=== PATIENT | female | born 1960 | race Caucasian/White ===

== ENCOUNTER → 2017-04-21 | Outpatient (CLI) | payer OTHER ==
[2017-04-21 18:49] LABS: Basophils # (A) 0.1 k/uL (0-0.2); Basophils % (A) 1 %; CHCM 32.8; Eosinophils # (A) 0.3 k/uL (0-0.7); Eosinophils % (A) 4 %; HCT 45.2 % (34.0-46.0); HDW 2.42; HGB 14.8 gm/dL (11.4-16.0); Luc # (Auto) 0.23; Luc % (Auto) 3; Lymphocytes # (A) 2.6 k/uL (1.0-4.8); Lymphocytes % (A) 36 %; MCH 31.2 pg (25.0-35.0); MCHC 32.8 g/dL (31.0-37.0); MCV 95.1 fL (80.0-100.0); Mean Platelet Volume 8.3; Monocytes # (A) 0.4 k/uL (0-1.0); Monocytes % (A) 6 %; Neutrophils # (A) 3.8 k/uL (1.3-7.7); Neutrophils % (A) 51 %; RBC 4.75 m/uL (3.80-5.40); RDW 12.5 % (11.5-15.5); WBC 7.4 k/uL (3.8-10.6); WBC (Perox) 7.68
[2017-04-21 19:05] LABS: ALT 39 U/L (9-52); AST 22 U/L (14-36); Alkaline Phosphatase 81 U/L (38-126); Anion Gap 13 mmol/L; Blood Urea Nitrogen 19 mg/dL (7-17); Calcium 10.1 mg/dL (8.4-10.2); Carbon Dioxide 24 mmol/L (22-30); Chloride 106 mmol/L (98-107); Cholesterol 261 mg/dL (<200); Glucose 105 mg/dL (74-99); HDL Cholesterol 51 mg/dL (40-60); Non-African American GFR(MDRD) >60 (>60 ml/min/1.73 sqM); Potassium 4.4 mmol/L (3.5-5.1); Sodium 143 mmol/L (137-145); Total Bilirubin 0.7 mg/dL (0.2-1.3); Total Protein 7.6 g/dL (6.3-8.2)
== END | disposition home or self-care (01) ==
LOC: MMGSC 10:25
PROVIDERS: ATTEND Family Medicine
DX: E78.5 Hyperlipidemia, unspecified (principal)
CPT/HCPCS: 36415; 80053; 80061; 84439; 84443; 85025

== ENCOUNTER → 2022-02-26 | Outpatient (CLI) | payer BC ==
--- NOTE | 2022-02-26 16:36 | MR ---
EXAMINATION TYPE: MR lumbar spine wo con DATE OF EXAM: 02/26/2022 COMPARISON: HISTORY: Low back pain, spondylosis CONTRAST: 0 mL intravenous Gadavist. TECHNIQUE: Multiplanar, multisequence images of the lumbar spine were acquired. FINDINGS: Cord terminates at the L1 level. L5-S1: No significant disc bulge or disc herniation. No spinal canal stenosis. No foraminal stenosi s. L4-L5: Grade 1 spondylolisthesis of L4 and L5 is present. Disc uncovering is present. No spinal canal stenosis is evident. Facet hypertrophy and ligamentum flavum laxity are present in the posterior lat eral thecal sac fashion. L3-L4: No significant disc bulge or disc herniation. No spinal canal stenosis. No foraminal stenosi s. Neural foramen are patent.. L2-L3: No significant disc bulge or disc herniation. No spinal canal stenosis. No foraminal stenosi s. Neural foramen are patent.. L1-L2: No significant disc bulge or disc herniation. No spinal canal stenosis. No foraminal stenosi s. Neural foramen are patent.. T12-L1: No significant disc bulge or disc herniation. No spinal canal stenosis. No foraminal stenos is. Neural foramen are patent.. There is a large left renal cyst. IMPRESSION: 1. Grade 1 spondylolisthesis of L4 anteriorly on L5.
== END | disposition home or self-care (01) ==
LOC: RADMRIMAIN 11:03
PROVIDERS: ATTEND Nurse Practitioner Family
DX: M43.16 Spondylolisthesis, lumbar region (principal)
CPT/HCPCS: 72148

== ENCOUNTER → 2022-04-26 | Outpatient (CLI) | payer BC ==
[2022-04-26 18:06] LABS: Basophils # (A) 0.06 X 10*3/uL (0.00-0.10); Basophils % (A) 0.7 %; Eosinophils # (A) 0.27 X 10*3/uL (0.04-0.35); Eosinophils % (A) 2.9 %; HCT 43.9 % (37.2-46.3); HGB 14.3 g/dL (12.0-15.0); Immature Grans, Automated 0.2 %; Lymphocytes # (A) 2.06 X 10*3/uL (0.90-5.00); Lymphocytes % (A) 22.4 %; MCHC 32.6 g/dL (32.0-37.0); MCV 95.2 fL (80.0-97.0); Mean Platelet Volume 11.7 fL (9.5-12.2); Monocytes % (A) 7.6 %; NRBC Per 100 WBC 0 /100 WBCS (0.0-0.0); Neutrophils # (A) 6.09 X 10*3/uL (1.80-7.70); Neutrophils % (A) 66.2 %; Platelet Count 285 X 10*3/uL (140-440); RBC 4.61 X 10*6/uL (4.10-5.20); RDW 12.9 % (11.5-14.5)
[2022-04-26 18:20] LABS: INR 0.91 (0.90-1.11); Prothrombin Time 10.3 sec (9.9-11.9)
[2022-04-26 18:30] LABS: African American GFR (CKD) 92.2 (60.0-200.0); Anion Gap 9.2 mmol/L (10.00-18.00); Calcium 9.9 mg/dL (8.7-10.3); Carbon Dioxide 27.8 mmol/L (20.0-27.5); Non-African American GFR(CKD) 79.6 (60.0-200.0); Potassium 4.7 mmol/L (3.5-5.5)
== END | disposition home or self-care (01) ==
LOC: LABPAT 12:46
PROVIDERS: ATTEND Orthopaedic Surgery
DX: Z01.818 Encounter for other preprocedural examination (principal); M47.816 Spondylosis without myelopathy or radiculopathy, lumbar region; R00.1 Bradycardia, unspecified
CPT/HCPCS: 80048; 85025; 85610; 93005

== ENCOUNTER → 2022-05-13 | Outpatient (CLI) | payer BC | END | disposition home or self-care (01) | LOC: LABPAT 14:05 | PROVIDERS: ATTEND Orthopaedic Surgery | DX: Z01.812 Encounter for preprocedural laboratory examination (principal); M47.816 Spondylosis without myelopathy or radiculopathy, lumbar region | CPT/HCPCS: 87070 ==

== ENCOUNTER 2022-05-20 05:52 | Inpatient (IN) | payer BC ==
[~2022-05-20 05:52] MED LIST: ACETAMINOPHEN TAB 500 MG TAB PO PRN; GABAPENTIN 300 MG CAP PO PRN; MELOXICAM 7.5 MG TAB PO PRN; TRANEXAMIC ACID IN NACL,ISO-OS 1,000 MG in SALINE 1 100ML.BAG IVPB PRN
[2022-05-20] MEDS: LACTATED RINGERS 1,000 ML IV SCH (06:20)
--- NOTE | 2022-05-20 06:22 | P.HPOR ---
History of Present Illness H&P Date: 05/13/22 [facility], LE radicul[facility] .D:Date: 05/13/22 : 01:30pm .T:Title: [facility] History and Physical Date of :[birth year] Age: 61 year Height: 5'5" Weight: 225 lbs BP:126/70 BMI: 37.44 kg/m2 Occupation: Unemployed VAS: 10 CHIEF COMPLAINT: Pre-op Low back pain, LE weakness, buttock pain DOI: Chronic DOS: N/A Duration of current treatment regiment: 8 mo HISTORY : Xrays New xrays taken in office MRI completed Trauma or injury No Work-Related No Pain description dull, aching, burning, sharp. Location posterior Activity Modification yes Hand Dominance right TREATMENTS COMPLETED: 6 weeks of PT completed? Month and Year of last PT date? Yes How many sessions? 8 Did it help? No Aggravated sx had to stop Physician recommended home exercise completed? Duration of HEP course: Patient has trialed the physician directed home exercise program for 6 weeks (with/without) relief of their symptoms. Medications yes List: NSAIDs, Medrol, Gabapentin, Baclofen all without relief of her symptoms. Alternative interventions Chiropractic: No Massage therapy: yes R.I.C.E: No Brace: No Injections No RFA: No SUBJECTI VE: Ms. Goldberg returns to the office for a recheck of their low back and to review her planned L4-L5 TLIF. Since the time of the last appointment the patient reports increasing lumbar pain and radiculopathy. Overall the patient has seen a progressive increase in symptoms since their onset. Ms. Goldberg symptoms are exacerbated with prolonged standing and ambulation, due to this they notes that it is increasingly difficult for Ms. Goldberg to complete many of their daily tasks. Patient is having severe sleep disturbances as well due to their ongoing pain and associated symptoms. Regarding treatments, the patient has previously trialed all abovementioned treatment modalities. Patient denies trialing any other modalities at this time. Otherwise the patient denies any f/c/sob/cp, no incision concerns, no bladder or bowel retention/incontinence, no perineal numbness/tingling, and ambulates independently. HPI: Ms. Goldberg last presented on 03/11/2022 for evaluation of her low back. She previously saw my and PT worked her up appropriately and sent for physical therapy as well as treatment with [id number] medications and prescription medications. Her with a home exercise program and several other conservative measures which have not alleviated her symptoms. She had an MRI performed of her lumbar spine. She continues to have symptoms in her low back she lives of low back pain mechanically is worse with flexion and extension. She is difficulty with reaching bending or twisting due to pain. She states the pain radiates down into her buttock and hip region on the outside. She does get radiating pain down her legs as well and some numbness and tingling at times. She denies any bowel or bladder issues. She denies any perineal numbness or tingling. No fevers chills shortness of breath or chest pain at this time. Ms. Goldberg presents to the office 03/04/22 for an evaluation of lower back pain and review of her MRI results. Patient reports no changes in her symptoms from previous visit. Patient continues to report a sharp lumbar pain ongoing for multiple years with no known injury or trauma to indicate an exact onset of their symptoms. In addition to their lumbar pain, they do report that it radiates into the left buttock and describes it as pinpricks, associatedwithoutnumbness and tingling into bilateral lower extremities. Patient states she has bilateral groin and hip pain. Dr. Jackson reviewed Ms. Goldberg's imaging and has implyed the need for surgical intervention to relieve patient symptoms. I have discussed this with Ms. Goldberg and she agrees with this plan. Patient will schedule an appt with Dr. Jackson to discuss surgical procedure and to schedule if patient is ready. Otherwise the patient denies any f/c/sob/cp, no incision concerns, no bladder or bowel retention/incontinence no perineal numbness/tingling, and ambulates independently. Ms. Goldberg presents to the office 02/05/22 for an evaluation of lower back pain. Patient reports a sharp lumbar pain ongoing for multiple years with no known injury or trauma to indicate an exact onset of their symptoms. In addition to their lumbar pain, they do report that it radiates into the left buttock and describes it as pinpricks, associated without numbness and tingling into bilateral lower extremities. Overall the patient has seen a progressive increase in symptoms since their onset. Ms. Goldberg symptoms are exacerbated with any type of activity and is exacerbated with flexion and extension, due to this they notes that it is increasingly difficult for Ms. Goldberg to complete many of their daily tasks. Patient is having severe sleep disturbances as well due to their ongoing pain and associated symptoms. Patient states this is her primary concern. Regarding treatments, the patient has previously trialed 5 weeks of physical therapy without relief. Patient denies trialing any other modalities at this time. For their symptoms, the patient has been taking Motrin 800 mg. Patient was provided a prescription for Mobic without relief, so she chose to go back to her Motrin. Otherwise the patient denies any f/c/sob/cp, no incision concerns, no bladder or bowel retention/incontinence no perineal numbness/tingling, and ambulates independently. Ms. Goldberg was last seen on 12/12/2021 regarding lumbar pain that has been present for approximately one year. Patient states the pain radiates across lower back into bilateral buttock and bilateral lower extremities. Patient states pain is worse in the left lower extremity. Patient denies any numbness or tingling. Patient is currently using ibuprofen as needed. She was previously seen by Dr. Gutiérrez due to possible hip pain and received an injection into the left hip with no relief. Patient is able to independently. The patients' past social, medical, family, surgical history, as well as review of systems, have been reviewed. Please refer to the Neurosurgery History and Physical form that has been scanned in to our electronic medical record system. 16 points review of systems completed and as stated in HPI, all other systems reviewed are negative. Social History: Reviewed, see appropriate section of the chart for details. P3 Family History: Reviewed, see appropriate section of the chart for details. P2 Past Medical History: Reviewed, see appropriate section of the chart for details. [id number] Medications: Rx: XANAX ORAL , Ref: 0 Rx: meloxicam 7.5 mg tablet Ref: 0 Rx: baclofen Ref: 0 Rx: gabapentin Ref: 0 P1 PHYSICAL EXAMINATION: General: Awake, alert, appropriate for age, in no acute distress. HEENT: No unusual neck masses around region of lateral neck triangle, thyroid, supraclavicular groove Heart: Regular rate and rhythm, normal S1, S2 and no murmur/gallop. Lungs: Clear to auscultation bilaterally with no use of accessory muscles. Extremities: Skin warm and dry without acute lesions, coloration, temperature, skin intact, no tenderness or erythema Integument: Hairy patches: ABSENT Dorsal skin dimples: ABSENT Cafe au lait spots: ABSENT Surgical incisions: shoulder incisions are well-healed Palpation: Please see Pain drawing on Intake sheet for further detail. Midline spinal tenderness: No E6 Cervical Tenderness: No E6 Paralumbar tenderness: he has E6 Parathoracic tenderness: No E6 Buttocks tenderness: No E6 POSTURAL and MUSCULO-SKELETAL EVALUATION: Coronal Balance: NEUTRAL Recumbent testing: Patient is able to lay flat on back Sagittal Balance: NEUTRAL Shoulder Profile: LEVEL Pelvic Girdle: LEVEL Neck ROM: UNRESTRICTED Lumbar ROM: RESTRICTED Shoulder ROM: Symmetrical Hip ROM: Symmetrical Knee ROM: Symmetrical Hands: Normal appearance, symmetrical Feet: Normal appearance, Symmetrical VASCULAR STATUS : LEFT RIGHT Wrist Pulses INTACT INTACT Pedal Pulses (Dors. pedis & post.tibialis) INTACT INTACT Color NORMAL NORMAL Edema Absent Absent NEUROLOGIC EXAMINATION: Mental Status:Awake and alert, fully oriented, with normal attention, concentration and memory, and fluent, appropriate speech. Cranial Nerves: I: Olfactory not tested. II: Visual acuity normal, no visual field deficit noted with confrontation. III,IV: Normal pupillary reflexes & intact extraocular movements without nystagmus. V,: Intact symmetrical facial sensation. VII: Intact symmetrical facial motor movement VIII: Hearing intact. IX,X: Intact gag, swallow, & normal voice. XI: Sternocleidomastoid, trapezius function intact. XII: Tongue midline with normal movements. L'hermitte's Sign: Negative / absent Spurling'Sign: Absent bilaterally. Cubital percussion test: Absent bilaterally. Prescott-Tinel sign - Carpal region: Absent bilaterally. Straight Leg Raising: Absent bilaterally. 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 Sensory system (0-4, N/T) Test type RU MILIND RL LL Joint-Position 2 2 2 2 Vibration 2 2 2 2 Pain & LT sense 2 2 2 2 Dermatomal Deficit: None None L4-5 L4 Gait and Functional Evaluation: Ambulatory aids: Cane RADIOGRAPHIC STUDIES: XRay taken on 03/11/22 of Lumbar Spine: Images review of stenosis or spondylolisthesis grade 1 L4-L5 which is unstable. He translates from 2 mm to 6.5 mm on flexion extension films.there is severe facet arthrosis pars elongation facet insufficiency which is noted. There is disc height loss and desiccation at this level. There is mild spondylosis at L5-S1. Lumbar lordosis is around 47 with pelvic instance around 58. No fracture dislocation other lesions noted MRI scan from02/26/2022 of Lumbar Spine: Images are reviewed with patient and demonstrate again grade 1 spondylolisthesis L4-L5. It is nearly reduced in the supine film. There is disc desiccation with height loss. There is facet arthrosis with facet cyst noted L4-L5. There are boggy facets L4-L5 with fluid accumulation. There is bilateral foraminal stenosis related to the listhesis as well as the facet cysts and disc bulging. There is again facet arthrosis and pars elongation. No other fracture dislocation or lesion is otherwise noted there is mild spondylosis L5-S1. Disc height loss noted throughout the lumbar spine as well. IMPRESSION: It was my pleasure to have seen and examined Jannet. I reviewed the patient's clinical syndrome, physical findings, and imaging studies during the appointment today. It is my impression that the patient has a diagnosis of. 1. L4-L5 grade 1 spondylolisthesis unstable 2. lower extremity radiculopathy 3. mechanical low back pain 4. Lower extremity weakness I outlined the natural course history without intervention and various interventional options. PLAN: Based on my findings I suggest the following course of action: -I discussed treatment options with the patient, including operative and non- operative options, and they have elected to proceed with the following surgical procedure: lumbar L4-L5 Transforaminal Lumbar Interbody Fusion The indications, risks, benefits, and alternatives to surgery were discussed with the patient and family at length. Specifically (but not limited to) the risks of infection, stiffness, recurrence of symptoms, need for revision surgery, local numbness, neurovascular injury, and blood clots were discussed. The patient's questions were answered. The decision to proceed was made. Consent will be obtained for the procedure. Spine Surgery Risk Review Ms. Goldberg is presenting for evaluation of low back pain and radiculopathy. It was my pleasure to have seen and examined Ms. Goldberg. In our visit today we have had a chance to go over subjective complaints, physical examination findings and treatments including the natural course history without intervention and various interventional options. The patients imaging demonstrates: XRay taken on 03/11/22 of Lumbar Spine: Images review of stenosis or spondylolisthesis grade 1 L4-L5 which is unstable. He translates from 2 mm to 6.5 mm on flexion extension films.there is severe facet arthrosis pars elongation facet insufficiency which is noted. There is disc height loss and desiccation at this level. There is mild spondylosis at L5-S1. Lumbar lordosis is around 47 with pelvic instance around 58. No fract ure dislocation other lesions noted MRI scan from02/26/2022 of Lumbar Spine: Images are reviewed with patient and demonstrate again grade 1 spondylolisthesis L4-L5. It is nearly reduced in the supine film. There is disc desiccation with height loss. There is facet arthrosis with facet cyst noted L4-L5. There are boggy facets L4-L5 with fluid accumulation. There is bilateral foraminal stenosis related to the listhesis as well as the facet cysts and disc bulging. There is again facet arthrosis and pars elongation. No other fracture di slocation or lesion is otherwise noted there is mild spondylosis L5-S1. Disc height loss noted throughout the lumbar spine as well. On physical exam, Ms. Goldberg demonstrates severely restricted lumbar ROM with bilateral lower extremity radiculopathy and weakness. Patient has impacted gait due to her lower extremity weakness and ambulates with aids due to this. Of note patient had L4 dermatomal deficit about the left lower extremity and L4-L5 dermatomal deficit about the right lower extremity. I have explained to the patient that as their condition progresses it will cause further neurological deficits and eventual paralysis. Based on the patients imaging, physical exam, and the rapid progression and disabling nature of their symptoms, at this time I recommend surgery in the form or a: lumbar L4-L5 Transforaminal Lumbar Interbody Fusion. I discussed the risk and benefits of this procedure at length with Ms. Goldberg. The patient agreed to considered pursuing the procedure abovementioned. Prior to surgery, she should follow up with her PCP (Cardio, ID, IM etc) for clearance. Questions were invited and answered, and the patient wishes to proceed as outlined below. Currently, I am recommendin.lumbar L4-L5 Transforaminal Lumbar Interbody Fusion 2.Follow up with PCP for surgical clearance 3.Review of surgical risks and benefits as well as an educational packet on the proposed surgical procedure. Risks: All surgical procedures come with inherent risks, including those related to positioning, anesthesia, intraoperative findings, and postoperative complications. It is important to understand that surgery does not come with any guarantee of a successful outcome as complications and adverse events are always possible. The patient was given a handout in office today discussing the surgical procedure and risks associated with the intervention, both of which were discussed with the patient. These risks include but are not limited to the following: * Experiencing same, different or even worse symptoms in back, neck, arms, or legs compared to before surgery. Requiring further surgery or other forms of treatment presently or at some time in the future at same or other levels of the intended spine surgery. On an extreme but fortunately relatively rare basis severe complication such as blindness, stroke, heart attack, temporary and/or permanent nerve injury, paralysis, coma, or may occur, sometimes without known explanation. Surgical complications may include but are not limited to risk of infection, fluid accumulation in the surgical dissection site, including a seroma or hematoma, that requires additional surgery, wound drainage, bleeding, new numbness or weakness, vision changes/loss, spinal fluid leakage, non-healing and/or infected incision, headaches, difficulty or inability to swallow, hoarseness, hemopneumothorax, pneumothorax, impotence, retrograde ejaculation, vaginal dryness; injury to nerves, spinal cord, blood vessels, lymphatics or other vital organs (i.e., bowel injury, injury to the great vessels); heterotopic bone formation; complications related to the hardware such as screws, rods, cages including misplaced hardware, device failure, instrumentation at the wrong spine level, hardware fracture/breakage, or hardware loosening; vertebral failure of the spinal column above or below the newly placed hardware; retained surgical instrumentations or devices and the need for further surgery. * Medical risks of the planned spine surgery include but are not limited to generalized Infections to the whole body or local areas outside of the surgica l site (sepsis), heart attack, bleeding, anaphylaxis, meningitis, seizure, epilepsy, hearing loss, burn iqbal, laceration of the head or other areas of the body, bruising, hypersensitivity of the skin, bladder over distension; allergic reaction; shoulder injury related to positioning; fat, blood and air clots to other areas of the body like heart, lungs, brain; failure of internal organs such as lungs, kidneys, liver and excessive bleeding. If blood transfusions are necessary, note that transfusions may cause intolerance reactions such as anaphylaxis or other complex reactions. Despite best efforts, the results of spine surgery might not heal in terms of bone, soft tissues such as skin, fascia, ligaments, and joints. Additionally, in order to achieve best possible results, spine surgery may be carried out beyond the initially planned levels and involve decompression, fusion including insertion of hardware at levels other than the original intended area of surgical interest change some portions of the procedure in order to ensure the best possible outcomes. With spine surgery and spinal fusion, there are different off label uses of instrumentation (devices, implants and hardware) as well as biological substances (bone morphogenic proteins, demineralized bone matrix) as well as using extra bone from allograft sources (i.e. cadaver bone) or autograft (iliac crest bone, ribs, or the spine itself). The patient has been given information about these practices and their inherent risks and benefits. [facility] is an educational center that serves as a training facility for neurosurgical and orthopedic CHILD CARE GROUP LEADER and Nursing students. Physician assistants are medically trained surgical providers who function in the outpatient, inpatient, and operating room setting under the direct supervision of the attending surgeon. [facility] has multiple operating rooms with single and overlapping rooms running daily. They currently function under the required guidelines as produced by the [facility] Finance Committee with regards to the overlapping rooms and will continue to comply with changes to this policy as they occur. The requirements include and are complied with as follows: (1) the critical portions of the overlapping rooms will not occur at the same time, (2) the attending physician will be physically present during the critical portions of the procedure and immediately available during the entire case, and (3) a back-up attending is designated should the primary attending not be immediately available. The patient has had a chance to review all the listed information, has been given print outs detailing this information, and has had all his/her questions answered to their satisfaction. It was my pleasure to have seen and examined Ms. Goldberg. In our visit today we have had a chance to go over my understanding of our patient's current condition, the natural course history without intervention and various interventional options. Questions were invited and answered, and the patient wishes to proceed as outlined above. I have seen and examined the patient for 25 minutes and we have spent more than 50% of the time in repeat and detailed cou nseling about the patient's condition, its natural course history with out and as much as can be predicted with surgery and re-review of various surgical treatment options. In conclusion, Ms. Goldberg requested we proceed with the above suggested surgery and are willing to accept risks and limitations of the suggested surgery as nature of the disease process and our best attempts at treatment for the condition. Thank you again for allowing us to be part of your patient's care. Please don't hesitate to contact me if you have any further questions. Signed and authenticated by: graphic Follow- up: 2 weeks post-op Patient Education: (Informational booklet, instructions, etc) given at today's appointment: Yes .ED:Patient Education: Y Medications Reviewed: YES In our visit today Ms. Goldberg and I have had a chance to go over my understanding of the patient's current condition, the natural course history without intervention and various interventional options. Questions were invited and answered, and the patient wishes to proceed as outlined above. I will be sure to keep you updated afterMs. Goldberg returns here for further follow-up. Thank you again for your referral. Please do not hesitate to contact me if you have any further questions. Signed and authenticated by: Chuckie Alas [facility] Complex and Minimally Invasive Spine Surgery [facility] [place] [address] [address] This message is confidential, intended only for the named recipient(s) and may contain information that is privileged or exempt from disclosure under applicable law. If you are not the intended recipient(s), you are notified that the dissemination, distribution or copying of this information is strictly prohibited. If you received this message in error, please notify the sender then delete this message. # SIGNED BY Chuckie Jackson ([email or web address])05/20/2022 06:21AM Past Medical History Past Medical History: Hyperlipidemia, Musculoskeletal Disorder, Osteoarthritis (OA) Additional Past Medical History / Comment(s): LEFT SHOULDER PAIN History of Any Multi-Drug Resistant Organisms: None Reported Past Surgical History: Section, Hysterectomy, Joint Replacement, Orthopedic Surgery Additional Past Surgical History / Comment(s): PARTIAL HYSTERECTOMY,LAPAROSCOPY, LEFT ANKLE SURG & HARDWARE REMOVED, VERONICA KNEE ARTHROSCOPY, VERONICA TOTAL KNEES, left shoulder arthroscopy, cyst removed right hand Past Anesthesia/Blood Transfusion Reactions: No Reported Reaction, Motion Sickness Smoking Status: Former smoker - Past Family History Mother Family Medical History: No Reported History Medications and Allergies Home Medications Medication Instructions Recorded Confirmed Type Gabapentin [Neurontin] 300 mg PO DAILY 08/28/15 05/20/22 History Ibuprofen [Motrin] 600 mg PO Q8HR PRN 08/28/15 05/20/22 History ALPRAZolam [Xanax] 0.5 mg PO DAILY PRN 05/17/22 05/20/22 History Baclofen [Lioresal] 10 mg PO TID 05/17/22 05/20/22 History Escitalopram [Lexapro] 10 mg PO DAILY 05/17/22 05/20/22 History Lovastatin [Mevacor] 20 mg PO DAILY 05/17/22 05/20/22 History Allergies Allergy/AdvReac Type Severity Reaction Status Date / Time latex Allergy Unknown Rash/Hives Verified 05/20/22 06:17 adhesive AdvReac skin Verified 05/20/22 06:17 blisters Physical Examination Osteopathic Statement: *. No significant issues noted on an osteopathic structural exam other than those noted in the History and Physical/Consult.
--- NOTE | 2022-05-20 06:37 | P.PN ---
Progress Note - Text Progress Note Date: 05/20/22 History and Physical UPDATE I have seen and examined the patient and reviewed the history and physical. There appear to be no significant changes in the patient's current medical status as outlined in the current History and Physical.
[2022-05-20] MEDS ORDERED: ONDANSETRON 4 MG/2 ML VIAL ONE (06:40)
[2022-05-20] MEDS ORDERED: ONDANSETRON 4 MG/2 ML VIAL IVP ONE (06:44)
[2022-05-20] MEDS ORDERED: DEXAMETHASONE SOD PHOSPHATE 4 MG/ML 1 ML VIAL IVP ONE (06:44)
[2022-05-20] MEDS ORDERED: LIDOCAINE 2% INJ 20 MG/ML (2 ML VIAL) ONE (07:44)
[2022-05-20] MEDS ORDERED: THROMBIN (BOVINE) 5,000 UNIT VIAL TOPICAL ONE (07:44)
[2022-05-20] MEDS ORDERED: NEOSTIGMINE 1 MG/ML 10 ML VIAL ONE (07:44)
[2022-05-20] MEDS ORDERED: GELATIN SPONGE,ABSORB (LARGE) 1 EACH SPONGE TOPICAL ONE (07:44)
[2022-05-20] MEDS ORDERED: ROCURONIUM 10 MG/ML (5 ML VIAL) IV ONE (07:44)
[2022-05-20] MEDS ORDERED: PROPOFOL 10 MG/ML 20 ML VIAL IV ONE (07:44)
[2022-05-20] MEDS ORDERED: MIDAZOLAM 2 MG/2 ML VIAL ONE (07:44)
[2022-05-20] MEDS ORDERED: fentaNYL (PF) 50 MCG/ML 2 ML AMP ONE (07:44)
[2022-05-20] MEDS ORDERED: SUCCINYLCHOLINE CHLORIDE 200 MG/10 ML VIAL IV ONE (07:44)
[2022-05-20] MEDS ORDERED: TRANEXAMIC ACID IN NACL,ISO-OS 1,000 MG/100 ML BAG ONE (07:44)
[2022-05-20] MEDS ORDERED: GLYCOPYRROLATE 0.2 MG/ML 2 ML VIAL ONE (07:44)
--- NOTE | 2022-05-20 10:24 | FL ---
Fluoroscopy HISTORY: Lumbar fusion 2 minutes 16 seconds fluoroscopy time supplied to the referring clinician. 4 intraoperative C-arm im ages document the procedure. See dictated report from orthopedic surgery.
[2022-05-20] MEDS ORDERED: SENNOSIDES-DOCUSATE SODIUM 1 EACH TAB PO PRN (10:28)
[2022-05-20] MEDS ORDERED: HYDROcodone/APAP 5-325MG 1 EACH TAB PO PRN (10:28)
[2022-05-20] MEDS ORDERED: BACLOFEN 10 MG TAB PO PRN (10:32)
[2022-05-20] MEDS ORDERED: LACTATED RINGERS 1,000 ML IV ONE ×2 (10:38→12:14)
[2022-05-20] MEDS ORDERED: HYDROmorphone 0.5 MG/0.5 ML SYRINGE IVP ONE ×4 (10:45→11:22)
[2022-05-20] MEDS ORDERED: MIDAZOLAM 2 MG/2 ML VIAL IVP ONE (11:11)
[2022-05-20] MEDS ORDERED: diazePAM 5 MG TAB PO ONE (11:32)
[2022-05-20] MEDS: ACETAMINOPHEN TAB 325 MG TAB PO SCH ×3 (14:37→23:44)
[2022-05-20] MEDS: HYDROmorphone 1 MG/ML 1 ML SYRINGE IVP PRN ×3 (14:43→22:06)
--- NOTE | 2022-05-20 14:43 | P.PN ---
Progress Note - Text Progress Note Date: 05/20/22 Brief Post Op: Surgeon: Renetta Pre op dx; L4-L5 grade 1 spondylolisthesis Post op dx: same Procedure: L4-L5 minimally invasive posterior lateral and interbody fusion Anesthesia: GETA EBL: 150 Fluids: 1500 UO: 250 Dispo: Stable to PACU Post op Plan: Post operative noncontrasted CT scan advance diet as tolerated Encourage ambulation IS 10x/hr Teds/SCDs Pain control No brace needed for ambulation limit lifting bending twisting
--- NOTE | 2022-05-20 14:47 | P.HPIM ---
History of Present Illness H&P Date: 05/20/22 Chief Complaint: back pain Patient is a 61-year-old female with a past medical history of osteoarthritis, anxiety and depression and hyperlipidemia and obesity who was admitted for for lumbar fusion. Patient was seen after his surgery. She is complaining of back pain but otherwise has no complaints. Medicine has been consulted for medical management. Patient denies any history of coronary artery disease, diabetes or cancer. Patient denies any lower extremity numbness or tingling. She stated that she is able to move her lower extremities. Review of Systems 10 ROS reviewed and are negative except as noted in HPI Past Medical History Past Medical History: Hyperlipidemia, Musculoskeletal Disorder, Osteoarthritis (OA) Additional Past Medical History / Comment(s): LEFT SHOULDER PAIN History of Any Multi-Drug Resistant Organisms: None Reported Past Surgical History: Section, Hysterectomy, Joint Replacement, Orthopedic Surgery Additional Past Surgical History / Comment(s): PARTIAL HYSTERECTOMY,LAPAROSCOPY, LEFT ANKLE SURG & HARDWARE REMOVED, VERONICA KNEE ARTHROSCOPY, VERONICA TOTAL KNEES, left shoulder arthroscopy, cyst removed right hand Past Anesthesia/Blood Transfusion Reactions: No Reported Reaction, Motion Sickness Smoking Status: Former smoker - Past Family History Mother Family Medical History: No Reported History Medications and Allergies Home Medications Medication Instructions Recorded Confirmed Type Gabapentin [Neurontin] 300 mg PO DAILY 08/28/15 05/20/22 History Ibuprofen [Motrin] 600 mg PO Q8HR PRN 08/28/15 05/20/22 History ALPRAZolam [Xanax] 0.5 mg PO DAILY PRN 05/17/22 05/20/22 History Baclofen [Lioresal] 10 mg PO TID 05/17/22 05/20/22 History Escitalopram [Lexapro] 10 mg PO DAILY 05/17/22 05/20/22 History Lovastatin [Mevacor] 20 mg PO DAILY 05/17/22 05/20/22 History Allergies Allergy/AdvReac Type Severity Reaction Status Date / Time latex Allergy Unknown Rash/Hives Verified 05/20/22 06:17 adhesive AdvReac skin Verified 05/20/22 06:17 blisters Physical Exam Osteopathic Statement: *. No significant issues noted on an osteopathic structural exam other than those noted in the History and Physical/Consult. Vitals: Vital Signs Temp Pulse Pulse Resp BP BP Pulse Ox 05/20/22 14:23 98 F 67 16 121/78 98 05/20/22 13:51 67 16 121/75 94 L 05/20/22 13:30 69 16 130/63 98 05/20/22 13:00 64 16 132/71 97 05/20/22 12:30 78 16 129/73 98 05/20/22 12:15 87 16 126/68 94 L 05/20/22 12:00 68 16 126/65 95 05/20/22 11:45 77 16 116/74 90 L 05/20/22 11:30 62 16 130/72 91 L 05/20/22 11:16 75 16 136/85 97 05/20/22 11:01 78 16 95 05/20/22 10:46 77 16 164/77 94 L 05/20/22 10:31 96.9 F L 80 16 165/82 96 05/20/22 06:15 96.9 F L 69 18 117/66 97 Intake and Output 05/19/22 05/20/22 05/20/22 22:59 06:59 14:59 Intake Total 200 1900 Output Total 300 Balance 200 1600 Intake: IV 200 1900 Output: Urine 150 Estimated Blood Loss 150 Other: Voiding Method Indwelling Catheter Weight 98.3 kg General: [Alert and oriented, well nourished, no acute distress]. Eye: [PERRL, EOMI, normal conjunctiva]. HENT: [Normocephalic, clear tympanic membranes, normal hearing, moist oral mucosa, no scleral icterus, no sinus tenderness]. Neck: [Supple, non-tender, no carotid bruits, no JVD, no lymphadenopathy]. Lungs: [Clear to auscultation and percussion, non-labored respiration]. Heart: [Normal rate, regular rhythm, no murmur, gallop or edema]. Abdomen: [Soft, non-tender, non-distended, normal bowel sounds, no masses]. Musculoskeletal: [Normal range of motion and strength, no tenderness or swelling]. Skin: [Skin is warm, dry and pink, no rashes or lesions]. Neurologic: [Awake, alert, and oriented X3, CN II-XII intact]. Psychiatric: [Cooperative, appropriate mood and affect]. Thrombosis Risk Factor Assmnt - Choose All That Apply Each Factor Represents 1 point: Obesity (BMI >25) Each Risk Factor Represents 2 Points: Age 61-74 years, Major surgery Thrombosis Risk Factor Assessment Total Risk Factor Score: 5 Thrombosis Risk Factor Assessment Level: High Risk Assessment and Plan Assessment: Osteoarthritis Continue current pain regimen Anxiety and depression Continue with home medications Obesity Encourage weight loss Status post lumbar fusion Your orthopedic surgery management Thank you for the consult will continue to follow along with you
[2022-05-20] MEDS: GABAPENTIN 300 MG CAP PO SCH ×2 (17:17→23:44)
--- NOTE | 2022-05-20 20:49 | CT ---
EXAMINATION TYPE: CT lumbar spine wo con DATE OF EXAM: 05/20/2022 COMPARISON: None HISTORY: s/p L4-L5 MIS TLIF CT DLP: 1803.6 mGycm Automated exposure control for dose reduction was used. The lumbar vertebrae have normal alignment. There is disc prosthesis at L4-5. There is posterior fusi on surgery with rods and screws at L4-5. No compression fracture. No lumbar paraspinal mass. There is some atelectasis at both lung bases. Iliac joints are intact. There are posterior skin vivian. Ther e is laminectomy defect of L4 on the left side. IMPRESSION: Previous recent surgery. No fracture. No complicating process. No evidence of any significant spinal stenosis. Exam limited by metal artifact.
[2022-05-21] MEDS: HYDROmorphone 1 MG/ML 1 ML SYRINGE IVP PRN ×4 (03:08→15:28)
[2022-05-21] MEDS: ACETAMINOPHEN TAB 325 MG TAB PO SCH ×4 (05:59→22:55)
[2022-05-21] MEDS: LACTATED RINGERS 1,000 ML IV SCH (08:22)
[2022-05-21] MEDS: HYDROcodone/APAP 10-325MG 1 EACH TAB PO PRN ×2 (08:23→22:05)
[2022-05-21] MEDS: GABAPENTIN 300 MG CAP PO SCH ×3 (08:23→22:05)
--- NOTE | 2022-05-21 08:48 | P.PN ---
Subjective Progress Note Date: 05/21/22 Principal diagnosis: Lumbar Spondylosis Bilateral Lower Extremity weakness Bilateral Lower extremity radiculopathy Patient seen and examined at bedside. Patient resting in hospital bed. She states pain is managed on current regimen, reports pain only with activity. Patient assisted to roll to her right side to assess surgical dressings, patient tolerated well. Surgical dressings are clean dry and intact. Prescription for LSO brace was placed in chart. She states she may be ready for discharge pending physical therapy recommendations. Patient currently denies fevers/chills, nausea/vomiting, or chest pain. Objective - Vital Signs Vital signs: Vital Signs Temp 98.7 F 05/21/22 05:00 Pulse 68 05/21/22 05:00 Resp 16 05/21/22 05:00 BP 101/69 05/21/22 05:00 Pulse Ox 96 05/21/22 05:00 FiO2 Intake & Output 05/20/22 05/21/22 05/21/22 18:59 06:59 18:59 Intake Total 1950 820 Output Total 300 1100 Balance 1650 -280 Intake: IV 1900 Intake, IV Titration 50 340 Amount Lactated Ringers 1,000 ml 240 @ 20 mls/hr IV .Q24H [facility] Rx#:[id number] ceFAZolin 2 gm In Sodium 50 100 Chloride 0.9% 50 ml @ 100 mls/hr IVPB Q8HR [facility] Rx# :[id number] Oral 480 Output: Urine 150 1100 Estimated Blood Loss 150 Other: Voiding Method Indwelling Catheter Indwelling Catheter - Exam Physical Examination General: The patient is awake and alert, in no acute distress Skin: Skin is warm and dry with no obvious rashes or lesions. Hairy patches absent, no dorsal skin dimples, no cafe au lait spots. x2 surgical incisions to the lumbar region, Dressings are CDI. Eye: Pupils are equal, round and reactive to light, extra-ocular movements are intact; there is normal conjunctiva bilaterally. Neck: The neck is supple, there is no tenderness and ROM intact. Cardiovascular: There is a regular rate and rhythm. No murmur, rub or gallop is appreciated. Respiratory: Lungs are clear to auscultation, respirations are non-labored, breath sounds are equal. Gastrointestinal: Soft, non-distended, non-tender abdomen . Back: There is no tenderness to palpation in the midline, paralumbar, parathoracic or buttocks region. There is no obvious deformity . Musculoskeletal: ROM limited secondary to pain and stiffness from surgical procedure. Muscle strength 5/5 in all major muscle groups of the bilateral upper extremities, 4/5 in bilateral lower extremities. Neurological: CN 2-12 intact. There are no obvious motor or sensory deficits. Movement and coordination equal and intact. Sensory exam to light touch intact C5-T1 and intact from L2-S1. Reflexes 2/4 in bilateral upper and lower extremities. Negative Hoffmans, babinski, and clonus signs. Psychiatric: Cooperative, appropriate mood & affect, normal judgment. Assessment and Plan Assessment: s/p Post-Op day 1: L4-L5 MIS TLIF Lumbar Spondylosis Bilateral Lower Extremity weakness Bilateral Lower extremity radiculopathy Plan: Plan: -Appreciate testing consultant and team management. -Activity: Ambulate QID, OOB all meals, up and about, limit lifting bending twisting to less than 5 lbs. Use walker or cane if needed for stability. -Daily PT/OT, increase ambulation strength and balance. -Brace when up and about, not needed in bed or chair -Pain control: Adequate at this time -Meds: reviewed -GI ppx: senna, Miralax -DC keys when up and about, bedside commode if needed -DVT PPX: OK to restart Heparin tonight -Hygiene: Shower today. Maintain dressing clean and dry. Meticulous cleaning after BMs away from the incision site -Encourage IS 10x/hr -Dispo: Anticipate discharge home today or tomorrow with homecare *I reviewed and discussed this case with my attending Dr. Jackson, whom has reviewed this chart and films and is in agreement with assessment and plan of care as outlined above. I have personally seen and examined the patient, performed the documentation and the assessment and plan as written. Number of minutes spent on the visit: 20m.
[2022-05-21 08:54] LABS: Basophils # (A) 0.05 X 10*3/uL (0.00-0.10); Basophils % (A) 0.5 %; Eosinophils # (A) 0.14 X 10*3/uL (0.04-0.35); Eosinophils % (A) 1.4 %; HCT 35.3 % (37.2-46.3); HGB 11.6 g/dL (12.0-15.0); Immature Grans, Automated 0.4 %; Lymphocytes # (A) 2.53 X 10*3/uL (0.90-5.00); Lymphocytes % (A) 25.8 %; MCH 30.7 pg (27.0-32.0); MCHC 32.9 g/dL (32.0-37.0); MCV 93.4 fL (80.0-97.0); Mean Platelet Volume 11.4 fL (9.5-12.2); Monocytes # (A) 0.96 X 10*3/uL (0.20-1.00); Monocytes % (A) 9.8 %; NRBC Per 100 WBC 0 /100 WBCS (0.0-0.0); Neutrophils # (A) 6.09 X 10*3/uL (1.80-7.70); Neutrophils % (A) 62.1 %; Platelet Count 225 X 10*3/uL (140-440); RBC 3.78 X 10*6/uL (4.10-5.20); RDW 12.9 % (11.5-14.5); WBC 9.81 X 10*3/uL (4.50-10.00)
[2022-05-21 09:37] LABS: African American GFR (CKD) 108.4 (60.0-200.0); Anion Gap 6.8 mmol/L (10.00-18.00); BUN/Creat Ratio 17.14 Ratio (12.00-20.00); Calcium 8.8 mg/dL (8.7-10.3); Carbon Dioxide 28.2 mmol/L (20.0-27.5); Non-African American GFR(CKD) 93.5 (60.0-200.0); Potassium 3.8 mmol/L (3.5-5.5)
[2022-05-21] MEDS ORDERED: ONDANSETRON 4 MG/2 ML VIAL IVP PRN (10:38)
--- NOTE | 2022-05-21 15:01 | P.PN ---
Subjective Progress Note Date: 05/21/22 Patient was seen and examined. No acute events overnight. Patient reports lower back pain, 8 out of 10 in severity. No numbness/weakness/tingling of the lower extremities. States that she has 6 stairs to get into her house. No bladder or bowel incontinence. No saddle anesthesia. General: Alert and oriented, well nourished, no acute distress. Eye: EOMI, normal conjunctiva. HENT: Normocephalic, normal hearing, moist oral mucosa, no scleral icterus. Neck: Supple, non-tender, no carotid bruits, no JVD, no lymphadenopathy. Lungs: Clear to auscultation and percussion, non-labored respiration. Heart: Normal rate, regular rhythm, no murmur, gallop or edema. Musculoskeletal: Normal range of motion and strength, no tenderness or swelling. Skin: Skin is warm, dry and pink, no rashes or lesions. Neurologic: Awake, alert, and oriented X3 Psychiatric: Cooperative, appropriate mood and affect. #Osteoarthritis Continue current pain regimen #Anxiety and depression Continue with home medications #Obesity Encourage weight loss #Status post lumbar fusion Your orthopedic surgery management Thank you for the consultation. Please call [facility] with any additional question or concerns. Objective - Vital Signs Vital signs: Vital Signs Temp 98.2 F 05/21/22 11:30 Pulse 80 05/21/22 11:30 Resp 16 05/21/22 11:30 BP 107/71 05/21/22 11:30 Pulse Ox 95 05/21/22 11:30 FiO2 Intake & Output 05/20/22 05/21/22 05/21/22 18:59 06:59 18:59 Intake Total 1950 820 Output Total 300 1100 300 Balance 1650 -280 -300 Intake: IV 1900 Intake, IV Titration 50 340 Amount Lactated Ringers 1,000 ml 240 @ 20 mls/hr IV .Q24H [facility] Rx#:[id number] ceFAZolin 2 gm In Sodium 50 100 Chloride 0.9% 50 ml @ 100 mls/hr IVPB Q8HR [facility] Rx# :[id number] Oral 480 Output: Urine 150 1100 300 Uretheral (Bennett) 300 Estimated Blood Loss 150 Other: Voiding Method Indwelling Catheter Indwelling Catheter Indwelling Catheter - Labs CBC & Chem 7: 05/21/22 04:49 05/21/22 04:49 Labs: Abnormal Lab Results - Last 24 Hours (Table) 05/21/22 05/21/22 Range/Units 04:49 04:49 RBC 3.78 L (4.10-5.20) X 10*6/uL Hgb 11.6 L (12.0-15.0) g/dL Hct 35.3 L (37.2-46.3) % Carbon Dioxide 28.2 H (20.0-27.5) mmol/L Anion Gap 6.80 L (10.00-18.00) mmol/L Glucose 113 H (70-110) mg/dL
[2022-05-21] MEDS: HYDROmorphone 0.5 MG/0.5 ML SYRINGE IVP PRN (20:42)
[2022-05-22] MEDS: HYDROmorphone 0.5 MG/0.5 ML SYRINGE IVP PRN (03:25)
[2022-05-22] MEDS: HYDROcodone/APAP 10-325MG 1 EACH TAB PO PRN ×2 (03:59→13:46)
[2022-05-22] MEDS: diazePAM 5 MG TAB PO PRN ×2 (04:52→14:20)
[2022-05-22] MEDS: ACETAMINOPHEN TAB 325 MG TAB PO SCH ×2 (05:46→14:22)
[2022-05-22] MEDS: LACTATED RINGERS 1,000 ML IV SCH (05:47)
[2022-05-22] MEDS: GABAPENTIN 300 MG CAP PO SCH (08:07)
[2022-05-22] MEDS: HYDROmorphone 1 MG/ML 1 ML SYRINGE IVP PRN (09:33)
--- NOTE | 2022-05-22 09:46 | P.PN ---
Subjective Progress Note Date: 05/22/22 Principal diagnosis: Lumbar Spondylosis Bilateral Lower Extremity weakness Bilateral Lower extremity radiculopathy Patient seen and examined at bedside. Patient resting in hospital bed. She states pain is managed on current regimen, reports pain only with activity. She reports her bilateral lower extremities feel achy, but thinks if she gets walking around she would feel better. Surgical dressings are clean dry and intact. LSO brace at bedside. She states she is ready for discharge and feel comfortable going home. Patient currently denies fevers/chills, nausea/vomiting, or chest pain. Objective - Vital Signs Vital signs: Vital Signs Temp 98.8 F 05/22/22 03:44 Pulse 84 05/22/22 03:44 Resp 16 05/22/22 03:44 BP 114/72 05/22/22 03:44 Pulse Ox 95 05/22/22 03:44 FiO2 Intake & Output 05/21/22 05/22/22 05/22/22 18:59 06:59 18:59 Intake Total 840 Output Total 300 Balance -300 840 Intake: Intake, IV Titration 240 Amount Lactated Ringers 1,000 ml 240 @ 20 mls/hr IV .Q24H [facility] Rx#:[id number] Oral 600 Output: Urine 300 Uretheral (Bennett) 300 Other: Voiding Method Indwelling Catheter Toilet Toilet # Voids 1 1 - Exam Physical Examination General: The patient is awake and alert, in no acute distress Skin: Skin is warm and dry with no obvious rashes or lesions. Hairy patches absent, no dorsal skin dimples, no cafe au lait spots. x2 surgical incisions to the lumbar region, Dressings are CDI. Eye: Pupils are equal, round and reactive to light, extra-ocular movements are intact; there is normal conjunctiva bilaterally. Neck: The neck is supple, there is no tenderness and ROM intact. Cardiovascular: There is a regular rate and rhythm. No murmur, rub or gallop is appreciated. Respiratory: Lungs are clear to auscultation, respirations are non-labored, breath sounds are equal. Gastrointestinal: Soft, non-distended, non-tender abdomen . Back: There is no tenderness to palpation in the midline, paralumbar, parathoracic or buttocks region. There is no obvious deformity . Musculoskeletal: ROM limited secondary to pain and stiffness from surgical procedure. Muscle strength 5/5 in all major muscle groups of the bilateral upper extremities, 4/5 in bilateral lower extremities. Neurological: CN 2-12 intact. There are no obvious motor or sensory deficits. Movement and coordination equal and intact. Sensory exam to light touch intact C5-T1 and intact from L2-S1. Reflexes 2/4 in bilateral upper and lower extremities. Negative Hoffmans, babinski, and clonus signs. Psychiatric: Cooperative, appropriate mood & affect, normal judgment. - Labs CBC & Chem 7: 05/21/22 04:49 05/21/22 04:49 Labs: Abnormal Lab Results - Last 24 Hours (Table) 05/21/22 05/21/22 Range/Units 04:49 04:49 RBC 3.78 L (4.10-5.20) X 10*6/uL Hgb 11.6 L (12.0-15.0) g/dL Hct 35.3 L (37.2-46.3) % Carbon Dioxide 28.2 H (20.0-27.5) mmol/L Anion Gap 6.80 L (10.00-18.00) mmol/L Glucose 113 H (70-110) mg/dL Assessment and Plan Assessment: s/p Post-Op day 2: L4-L5 MIS TLIF Lumbar Spondylosis Bilateral Lower Extremity weakness Bilateral Lower extremity radiculopathy Plan: Plan: -Appreciate information technology consultant and team management. -Activity: Ambulate QID, OOB all meals, up and about, limit lifting bending twisting to less than 5 lbs. Use walker or cane if needed for stability. -Daily PT/OT, increase ambulation strength and balance. -Brace when up and about, not needed in bed or chair -Pain control: Adequate at this time -Meds: reviewed -GI ppx: senna, Miralax -DVT PPX: Heparin, TEDs -Hygiene: Shower today. Maintain dressing clean and dry. Meticulous cleaning after BMs away from the incision site -Encourage IS 10x/hr -Dispo: Anticipate discharge home today with homecare *I reviewed and discussed this case with my attending Dr. Jackson, whom has reviewed this chart and films and is in agreement with assessment and plan of care as outlined above. I have personally seen and examined the patient, performed the documentation and the assessment and plan as written. Number of minutes spent on the visit: 20m.
--- NOTE | 2022-05-22 09:49 | P.DS ---
Providers Date of admission: 05/20/22 05:52 Expected date of discharge: 05/22/22 Attending physician: Chuckie Jackson DO Consults: 05/20/22 10:28 Consult Physician Routine Consulting Provider: Anna Zepeda Consult Reason/Comments: medical management s/p L4-L5 MIS TLIF Do you want consulting provider notified?: Yes Primary care physician: [facility] Course: Hospital Course: The patient was evaluated preoperatively and found to have the diagnosis of lumbar spondylosis. They underwent appropriate preoperative care and were willing to undergo the intended procedure. They underwent a successful L4-L5 MIS TLIF, were recovered appropriately and sent to the floor. While on the floor they worked with physical therapy, occupational therapy and nursing to enhance their recovery experience. Their pain was well controlled through their stay and they were started on appropriate medications, DVT ppx modalities, activity and dietary needs. Daily labs were monitored closely, and transfusions were only used when necessary. Medicine as well as other consulting services have made their input and have helped with our team approach and multidisciplinary care. PT milestones have been met and passed and they have made the recommendation of home with home care for this patient and treating providers agree with this care path. The patient will be discharged home with appropriate medications, instructions and follow-up information and in stable condition. Patient Condition at Discharge: Good Plan - Discharge Summary Discharge Rx Participant: Yes New Discharge Prescriptions: New HYDROcodone/APAP 10-325MG [Seward 10-325] 1 tab PO Q4-6H PRN #56 tab PRN Reason: Pain cefaDROXiL [Duricef] 500 mg PO Q12HR 3 Days #6 cap Cyclobenzaprine [Flexeril] 5 mg PO TID #90 tablet Gabapentin 300 mg PO TID #90 cap Sennosides/Docusate Sodium [Senna Plus 8.6-50 mg Softgel] 1 each PO DAILY PRN #20 capsule PRN Reason: Constipation No Action Gabapentin [Neurontin] 300 mg PO DAILY Ibuprofen [Motrin] 600 mg PO Q8HR PRN PRN Reason: Pain Lovastatin [Mevacor] 20 mg PO DAILY Escitalopram [Lexapro] 10 mg PO DAILY ALPRAZolam [Xanax] 0.5 mg PO DAILY PRN PRN Reason: Anxiety Baclofen [Lioresal] 10 mg PO TID Discharge Medication List Gabapentin [Neurontin] 300 mg PO DAILY 08/28/15 [History] Ibuprofen [Motrin] 600 mg PO Q8HR PRN 08/28/15 [History] ALPRAZolam [Xanax] 0.5 mg PO DAILY PRN 05/17/22 [History] Baclofen [Lioresal] 10 mg PO TID 05/17/22 [History] Escitalopram [Lexapro] 10 mg PO DAILY 05/17/22 [History] Lovastatin [Mevacor] 20 mg PO DAILY 05/17/22 [History] Cyclobenzaprine [Flexeril] 5 mg PO TID #90 tablet 05/21/22 [Rx] Gabapentin 300 mg PO TID #90 cap 05/21/22 [Rx] HYDROcodone/APAP 10-325MG [Seward 10-325] 1 tab PO Q4-6H PRN #56 tab 05/21/22 [Rx] Sennosides/Docusate Sodium [Senna Plus 8.6-50 mg Softgel] 1 each PO DAILY PRN #20 capsule 05/21/22 [Rx] cefaDROXiL [Duricef] 500 mg PO Q12HR 3 Days #6 cap 05/21/22 [Rx] Follow up Appointment(s)/Referral(s): [facility], [NON-STAFF] - 1 Week Amy Bryant NPC [Nurse Practitioner] - 2 Weeks Adilene Catalan MD [Primary Care Provider] - 1 Week Activity/Diet/Wound Care/Special Instructions: Spine Discharge and Recovery Instructions Date of Surgery: 05/20/2022 Diagnosis: Lumbar spondylosis Procedure: L4-L5 MIS TLIF Medications: See medication list All medication refills should be obtained through your primary care doctor or your clinic spine surgeon. Please discuss prescription refills at your follow up appointment. Do not call the hospital for medication refills. Dressing: Leave your dressing in place for a total of 5 days post operatively. Then you may remove your dressing and leave open to air. Keep the area clean and if not able to keep area clean, then cover with sterile gauze and tape. Showering: You may shower 3 days after your procedure allowing soap and water to run over incision. Do not scrub. Do not soak. Blot dry. Follow up: Please confirm a follow up appointment with your surgeon 3 weeks post operatively. Please make an appointment to follow up with your PCP in 1-2 weeks after surgery for evaluation 3 phase, 3-week plan POST OP WEEKS 1-3 1. Lifting/carrying/pushing/pulling limited to less than 5 pounds. 2. Do not sit for longer than 15 minutes at one time. Get up and walk around. Prolonged sitting is NOT advised. If you lay down, see if you can tolerate laying down on you front (belly side) 3. Walk for periods of 15 minutes = 1 mile but no longer; do it multiple times times each day. 4. Ice your low back after activity. POST OP WEEKS 3-6 1. Lifting limited to less than 20 pounds. 2. Do not sit for longer than 30 minutes at a time. Frequently change positions. Use a sit-to stand workstation or take frequent breaks from sitting if you have returned to work. 3. Walk for 30 minutes each day. If possible, do these three or more times a day POST OP WEEKS 6+ At your 6-week appointment we will give you a physical therapy referral to focus on a core stabilization and strengthening program. You should also work on leg & buttock strengthening, hamstring & quadriceps stretching, and continue a low impact aerobic activity program such as swimming, walking, or riding a stationary bicycle. During the initial 6 weeks after your surgery, you are at the highest risk of re-injuring your spine. You should generally avoid BLTs (bending, lifting and twisting combination motions) and follow the above guidelines to reduce the chance of reinjury. You can anticipate post op appointments in our office at approximately 3 weeks and 6 weeks after your surgery. INCISION CARE: If your incision is not draining you do NOT need to cover it with a dressing. Keep your incision clean, dry and intact. In most cases, we apply skin glue, vivian or sutures to the incision at the time of surgery. This will be like a crust or have the appearance of a scab and will fall off in time on its own. The stitches or vivian need to be removed at 3 weeks post op appointment. You may begin to shower 3 days after surgery (this allows the glue to fisher well). However, please avoid scrubbing the incision site or peeling off any of the skin glue. This will ensure optimal healing of your incision. Also, during this time avoid soaking the incision area in water - this includes swimming pools, hot tubs or baths. No ointments, lotions or oils on the incision until your surgeon allows. Leave vivian, sutures or glue in place. Neurological dysfunction that comes on suddenly can also be a sign of a stroke. Below some common symptoms of a stroke are listed: B - balance difficulty such as sudden onset walking or leaning to one side - NEW E - eye problem such as sudden double vision or trouble seeing on one side - NEW F - Facial weakness or numbness on one side - NEW A - Arm or leg weakness or numbness on one side - NEW S - Slurred speech or difficulty with word finding - NEW T - Time is BRAIN! Call 911 as soon as you recognize these symptoms Diet: Consume a regular diet rich in vegetables and lean protein such as chicken or fish. You should consume in a ratio of approximately 20% fats|40% carbohydrates|40%protein. Vegetables, sweet potatoes, brown rice or quinoa are examples of good carbohydrates. Chips, white bread, cookies and sweets/sugar are examples of bad carbohydrates. Limit your bad carbs, go wild with good carbs. 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 (1) Get Active. Physical activity can help people lose weight, control high blood pressure and cholesterol, feel emotionally better, and sleep better. (2) Control Cholesterol. Avoid a diet high in saturated fat, trans fat, & cholesterol. Limit whole milk & cream, ice cream, butter, egg yolks, processed meats (like sausage and hot dogs), and fatty meats. Choose healthy foods that are low in saturated fat, trans fat and cholesterol which include: Fruits and vegetables, fiber rich grain products (like whole grain pasta and brown rice), lean meat such as chicken, fish, nuts, seeds, and legumes. (3) Eat Better. Eat small portions. Shop at the grocery with a list and do not stray from it. Tips for a healthy diet include: Limit sodium intake to less than 1500mg daily, avoid prepackaged, processed, and fast foods, choose a diet rich in fruits, vegetables, and whole grain, high fiber foods, and limit saturated & cholesterol in your diet. (4) Manage Blood Pressure. If you have high blood pressure, you should have a cuff at home so that you can check your blood pressure regularly. Be sure you have a good cuff. An arm one is generally better than a wrist one. Bring the cuff to a doctor's appointment to validate that the measurements that your cuff are taking are accurate. Take your blood pressure twice daily when you are sitting down and relaxing. Record the numbers in a log and bring this log with you to your doctors' appointments. (5) Lose Weight if your BMI is above 25. A healthy BMI is between 19-25. To calculate Your BMI, you may use a Standard BMI Calculator on the NIH BMI website: <www.nhlbi.nih.gov/guidelines/obesity/BMI/bmicalc.htm>. Weigh oneself daily. If you are overweight, set a goal to lose weight. A pound a week loss if needed is a good target. (6) Reduce Blood Sugar. Limit foods and liquids with "added sugars." (Added sugars include sucrose, fructose, glucose, maltose, dextrose, high fructose corn syrup, corn syrup, concentrated fruit juice and honey). (7) Stop Smoking. If you smoke, quitting smoking is one of the best things that you can do for your health. Smoking increases your risk of heart attack, stroke, and peripheral vascular disease, which is a build-up of plaque in your arteries. Please discard all the cigarettes and lighters in your house. Have a plan for what you will do when you have the urge to smoke. Direct and second- hand smoke shortens your life as well as the lives of your family, friends and others around you. For your health and the health of those around you, please consider quitting! Proper Bending Body Mechanics: Maintain a wide stance with one foot slightly in front of the other. Keep your back straight. Bend utilizing the strength in your hips and knees. Do not bend at the waist. Maintain the lifted object at your waist-level close to your body. Avoid lifting weight that causes immediately pain or pain anywhere in the body afterwards. Smoking/Nicotine If there was ever one thing that you could do to increase your overall health, decrease your risk of cardiovascular problems by about 39% the second you make the choice, it is to STOP SMOKING. Your body's most instant gratification is the second you stop smoking. We have all heard the studies, read the articles but it is true, smoking is extremely bad for your overall health, and moreover it is detrimental to your bone health. Nicotine, IN ANY FORM, kills bone cells, prevents your body from healing fractures, and significantly prolongs healing after surgery. In spine surgery specifically, it increases your risk of not healing your bones to create a fusion and increases your risk of having a revision surgery due to this up to 60%. I know it is hard. I know it feels impossible. But there are ways. Take control of your life. We are here to help you through it. And when you are ready, ask us and we can direct you to help if you desire. Use the START Plan to Quit Smoking (please visit the HelpMedypal.org website liste d below for more information): S = Set a quit date. Choose a date within the next 2 weeks, so you have enough time to prepare without losing your motivation to quit. If you mainly smoke at work, quit on the weekend, so you have a few days to adjust to the change. T = Tell family, friends, and co-workers that you plan to quit. Let your friends and family in on your plan to quit smoking and tell them you need their support and encouragement to stop. Look for a quit jt who wants to stop smoking as well. You can help each other get through the rough times. A = Anticipate and plan for the challenges you'll face while quitting. Most people who begin smoking again do so within the first 3 months. You can help yourself make it through by preparing ahead for common challenges, such as nicotine withdrawal and cigarette cravings. R = Remove cigarettes and other tobacco products from your home, car, and work. Throw away all your cigarettes (no emergency pack!), lighters, ashtrays, and matches. Wash your clothes and freshen up anything that smells like smoke. Shampoo your car, clean your drapes and carpet, and steam your furniture. T = Talk to your doctor about getting help to quit. Your doctor can prescribe medication to help with withdrawal and suggest other alternatives. If you can't see a doctor, you can get many products over the counter at your local pharmacy or grocery store, including the nicotine patch, nicotine lozenges, and nicotine gum. Resources for Quitting Smoking: <https://www.[place].gov/documents/[facility]/Quit_Tobacco_Resources_ for_patients_313480_7.pdf> Supplementation: Take recommended dosages of Vitamin D and Calcium to help fortify your bones and help them to heal. See your health maintenance packet for dosages and recommended levels. DVT/VTE prophylaxis: You will be given compression stockings from the hospital. Wear these daily for the first two weeks after surgery. You may take them off at night. You may be prescribed a medication to help thin your blood. Take this as directed. If you are not prescribed this medication, early and frequent ambulation has been shown to be the best prophylaxis to deep vein thrombosis and sequelae related to this event. Discharge Disposition: HOME WITH HOME HEALTH SERVICES
[2022-05-22 11:29] VITALS: BP 100/61; PULSE 79; RESP 18; TEMP 99.4
--- NOTE | 2022-05-22 11:50 | P.OP ---
Date of Procedure: 05/20/22 Preoperative Diagnosis: 1. L4 5 grade 1 spondylolisthesis 2. LLE radiculopathy with weakness 3. Mechanical low back pain Postoperative Diagnosis: 1. L4 5 grade 1 spondylolisthesis 2. LLE radiculopathy with weakness 3. Mechanical low back pain 4. Facet cyst with stenosis Procedure(s) Performed: 1. L4-5 minimally invasive posteriolateral and interbody fusion (66807) 2. L4-5 instrumentation (69078) 3. Insertion of biomechanical device L4-5 (43387) 4. L4-5 hemifacetectomy, foraminotomy and laminectomy (05523/59) Use of IONM Implants: -Nena New Era scew and balwinder system -Globus Sable Cage -MagnatOs -Autograft -Allograft Anesthesia: GETA Surgeon: Chuckie Jackson Gas Mask Inspector #1: Nilay Gardiner (Was presented and assisted in all aspects of the case from positioning to hardware placement decompression fusion closure and dressing placement) Estimated Blood Loss (ml): 150 IV fluids (ml): 1,500 Urine output (ml): 250 Pathology: none sent Condition: stable Disposition: PACU Indications for Procedure: 61 yo female with hx of low back pain, LLE pain and weakness has been getting worse over the past few years and over the past few months even more so. She has gone through PT now several times without improvement. She has taken Rx and OTC meds, done HEP and been to chiropractor. She has had injections in this area without relief of her sx. She states LLE pain, weakness, low back pain as well as a clicking sounds when she moves. She staets no bowel or bladder issues. She has discussed and elected to go forward with surgical fixation of this L4-5 spondylolisthesis with facet cyst and stenosis. We discussed risks and benefits as outlined in the risk review. She is willing to proceed. Description of Procedure: The patient was seen and examined in the preoperative area. All preoperative protocols were followed. Informed consent was obtained risks and benefits of the procedure were discussed at length. Risks including bleeding infection damage to the surrounding tissue and risk of reoperation were discussed with the patient. Risk of anesthesia up to and including was a discussed with the patient. These are outlined in the risk review. They were willing to accept these risks and all of the risks of surgery. The patient was given a weight- based dose of antibiotics in the form of 2 g Ancef. The patient was seen and evaluated by the anesthesia team who deemed them fit for surgery. The site was marked, the patient was willing to proceed with the procedure. The patient was transferred to the operative suite by the Department of anesthesia. They were then drifted off to sleep by the department anesthesia and GETA was performed. The patient tolerated this well. [Bennett catheter was placed by nursing staff, atraumatically]. Once confirmation of lines and ventilation the patient was transferred to a [prone Jax table very carefully]. All bony prominences including wrists, elbows, axilla, chest, hips, and thighs, and feet were padded very well. Special attention was paid to the genitalia and these were padded accordingly. SCDs were placed on bilateral lower extremities and were connected. Arms were well padded and placed [on arm boards up and out in the 90/90 position]. Once in position, again we confirmed good ventilation capabilities and that lines were running appropriately. The patient's lumbar spine was then exposed. 1010s were placed outlining the incision site. Standard alcohol was used to clean the incision site and allowed to dry. C-arm was used to biomark the patient and confirm level for incision which was marked with a skin marker. Operative briefing was performed with all teams and everyone in agreement to proceed. The patient was then prepped and vidal ped in a normal sterile fashion. Timeout was then performed and all parties were in agreement with the procedure to be performed. Jamshidi was then used along with AP and lateral fluoroscopy to target pedicles at L4 and L5 bilaterally. Skin incision was made and Jamshidi taken down under AP and lateral fluoroscopic guidance in L4 Jamshidi's were advanced in the vertebral bodies and wires placed in the void we then repeated this process of L5 bilaterally. Once the pedicles were target targeted AP and lateral fluoroscopic images confirmed good placement of wires. We then placed screws on the contralateral side at L4-L5. This was done under lateral fluoroscopic guidance. The screws were placed over the wires and advanced until the back of the vertebral body the wires were then removed and the screws advanced into position. Screws are in good position. We then proceeded with placement of tubular retractor system on the left-hand side. Sequential dilation was taken up over the area of L4-L5 until 26 mm tube was placed this was then secured to the table. We then brought in the operating microscope for visualization. Limited laminectomy was then performed which revealed the pars facet joints of L4 and L5 and lamina. Laminal foraminotomy as well as complete facetectomy was performed of L4 and L5 on this side using high-speed bur and Kerrison rongeurs. We then removed the ligamentum flavum revealing the dura and the exiting and traversing nerve roots were free visualized and decompressed. Once her decompressed the neural elements were mobilized and protected and the disc space was identified and meticulous hemostasis was performed. We then entered the disc space with a osteotome and confirmed it was in good position on AP and lateral. We will perform sequential shaving of the area removing disc completely a down-biting curet was used to remove disc on the contralateral side as well as an up-biting pituitary. Disc material was then removed as well as cartilage until there was good bleeding endplates and complete discectomy. We then selected the allograft I factor autograft and allograft were placed anteriorly within the disc space. Then while continuing to protect neural elements a cage was selected and impacted into position under lateral fluoroscopic guidance. Once the cages in position was expanded to meet the endplates and good lordosis was restored as well as height. Cages locked into position. The cages then back filled with DBM. In the cavus tests and was stable. We then copiously irrigated the wound bed performed continued decomp ression in this area until there was good bilateral decompression. We then removed the retractor under direct visualization. We then proceeded with placement of screws and left-hand side over the wires replace the screws were advanced under lateral fluoroscopic guidance on good position. Once in good position. Rods were measured and selected and placed subfascially in the area they were secured into L5 bilaterally and then sequentially reduced bilaterally into L4 for listhesis reduction. There was good listhesis reduction in this area. We then final tightened all set screws. Once this was accomplished the tabs were broken off of the screws and final AP and lateral imaging confirmed good placement of hardware as well as good reduction height confucianist of lordosis. We then copiously irrigated the wounds with normal sterile saline posterior lateral gutters were decorticated using high-speed bur and bone graft placed in their areas. We then proceeded with layered closure first and the fascia with #1 Vicryl followed by deep subcu tissue with 0 Vicryl superficial subcu tissue with 2-0 Vicryl and skin with skin vivian the wound edges approximated very well. We then cleaned the wounds and dressed him with sterile dressings. The patient was transferred back to their hospital bed atraumatically. Patient was then awakened and extubated by the department of anesthesia having tolerated the procedure very well with no complications. They were transferred to the postoperative care unit in stable condition.
--- NOTE | 2022-05-22 12:18 | P.PN ---
Subjective Progress Note Date: 05/22/22 Patient was seen and examined. No acute events overnight. Patient reports lower back pain, 10 out of 10 in severity. No numbness/weakness/tingling of the lower extremities. States that she has 6 stairs to get into her house. No bladder or bowel incontinence. No saddle anesthesia. General: Alert and oriented, well nourished, no acute distress. Eye: EOMI, normal conjunctiva. HENT: Normocephalic, normal hearing, moist oral mucosa, no scleral icterus. Neck: Supple, non-tender. Lungs: Clear to auscultation and percussion, non-labored respiration. Heart: Normal rate, regular rhythm, no murmur, gallop or edema. Musculoskeletal: Normal range of motion and strength, no tenderness or swelling. Skin: Skin is warm, dry and pink, no rashes or lesions. Neurologic: Awake, alert, and oriented X3. Psychiatric: Cooperative, appropriate mood and affect. #Osteoarthritis Continue current pain regimen #Anxiety and depression Continue with home medications #Obesity Encourage weight loss #Status post lumbar fusion Orthopedic surgery management. Pain management as per orthopedic surgery. Thank you for the consultation. Please call [facility] with any additional question or concerns. Patient medically stable. Objective - Vital Signs Vital signs: Vital Signs Temp 99.4 F 05/22/22 11:23 Pulse 79 05/22/22 11:23 Resp 18 05/22/22 11:23 BP 100/61 05/22/22 11:23 Pulse Ox 96 05/22/22 11:23 FiO2 Intake & Output 05/21/22 05/22/22 05/22/22 18:59 06:59 18:59 Intake Total 840 Output Total 300 Balance -300 840 Intake: Intake, IV Titration 240 Amount Lactated Ringers 1,000 ml 240 @ 20 mls/hr IV .Q24H [facility] Rx#:[id number] Oral 600 Output: Urine 300 Uretheral (Bennett) 300 Other: Voiding Method Indwelling Catheter Toilet Toilet # Voids 1 1 - Labs CBC & Chem 7: 05/21/22 04:49 05/21/22 04:49
== END 2022-05-22 18:11 | disposition home health service (06) | DRG 460 ==
LOC: 2ORMAIN 05:52 → 5NMEDONC 13:47
PROVIDERS: ADMIT Orthopaedic Surgery; ATTEND Orthopaedic Surgery
PROC: 01NB0ZZ Release Lumbar Nerve, Open Approach (ICD-10-PCS; 2022-05-20)
PROC: 0ST20ZZ Resection of Lumbar Vertebral Disc, Open Approach (ICD-10-PCS; 2022-05-20)
PROC: 0SG007J Fusion of Lumbar Vertebral Joint with Autologous Tissue Substitute, Posterior Approach, Anterior Column, Open Approach (ICD-10-PCS; 2022-05-20)
PROC: 0SG00AJ Fusion of Lumbar Vertebral Joint with Interbody Fusion Device, Posterior Approach, Anterior Column, Open Approach (ICD-10-PCS; principal; 2022-05-20 07:30)
DX: M43.16 Spondylolisthesis, lumbar region (principal); E66.9 Obesity, unspecified; F32.A Depression, unspecified; Z68.37 Body mass index [BMI] 37.0-37.9, adult; M54.16 Radiculopathy, lumbar region; M48.061 Spinal stenosis, lumbar region without neurogenic claudication; R53.1 Weakness; G47.8 Other sleep disorders; M25.552 Pain in left hip; M25.551 Pain in right hip; M47.817 Spondylosis without myelopathy or radiculopathy, lumbosacral region; M40.56 Lordosis, unspecified, lumbar region; E78.5 Hyperlipidemia, unspecified; F41.9 Anxiety disorder, unspecified; Z79.899 Other long term (current) drug therapy; Z79.891 Long term (current) use of opiate analgesic; Z56.0 Unemployment, unspecified; Z87.891 Personal history of nicotine dependence; Z91.040 Latex allergy status; Z91.048 Other nonmedicinal substance allergy status
CPT/HCPCS: 36415; 72100; 72131; 80048; 85025; 86850; 86900; 86901